=== PATIENT | female | born 1940 ===

== ENCOUNTER 2017-02-24 11:08 | Observation (INO) | payer MEDICARE ==
[2017-02-24 11:08] VITALS: BMI 26.2
--- NOTE | 2017-02-24 11:52 | ED PDOC ---
HPI: General Adult Time Seen by Provider: 02/24/17 11:32 Chief Complaint (Nursing): Dizziness/Lightheaded Chief Complaint (Provider): dizzy, vomiting History Per: Patient, Family (mother) Additional Complaint(s): 76-year-old female presents to emergency department for evaluation of headache, dizziness and vomiting that started at 5 AM this morning. Patient is unable to keep down any liquids or solids since vomiting started this morning. The patient took meclizine at home earlier but this did not help with dizziness or vomiting. She rates headache upon arrival as a 6 out of 10. She denies any facial numbness or numbness to upper or lower extremities. Patient has the sensation that the room is spinning and she does not feel steady on her feet when standing or walking. Patient also complains of overall body aches. Denies recent travel. Patient denies any chest pain, SOB or GE. NIHSS Stroke Scale - Date/Time Evaluation Performed Date Performed: 02/24/17 Time Performed: 11:45 When Was NIHSS Performed: Baseline - How Severe is the Stroke Level of Consciousness: 0=Alert LOC to Questions: 0=Both comments correct LOC to commands: 0=Obeys both correctly Best Gaze: 0=Normal Visual: 0=No visual loss Facial: 0=Normal Motor Arm - Left: 0=No drift Motor Arm - Right: 0=No drift Motor Leg - Left: 0=No drift Motor Leg - Right: 0=No drift Limb Ataxia: 0=Absent Sensory: 0=Normal Best Language: 0=No aphasia Dysarthia: 0=Normal articulation Extinction & Inattention (Neglect): 0=Normal, no object Score: 0 Past Medical History Reviewed: Historical Data, Nursing Documentation, Vital Signs Vital Signs: Last Vital Signs Temp 98 F 02/24/17 16:22 Pulse 79 02/24/17 16:54 Resp 18 02/24/17 16:54 BP 148/74 02/24/17 16:54 Pulse Ox 99 02/24/17 16:54 - Medical History PMH: Alzheimer's Disease, GERD - Surgical History Other surgeries: cataract surgery - Family History Family History: States: No Known Family Hx - Living Arrangements Living Arrangements: With Family - Social History Current smoker - smoking cessation education provided: No Alcohol: None Drugs: Denies - Home Medications Home Medications: Ambulatory Orders Medication Instructions Recorded Diclofenac Sodium [Voltaren] 1 appl TOP DAILY PRN 02/24/17 Diclofenac [Diclofenac] 25 mg PO BID PRN 02/24/17 Donepezil [Aricept] 5 mg PO HS 02/24/17 Ergocalciferol (Vitamin D2) 50,000 unit PO QWK 02/24/17 [Vitamin D2] Omeprazole [Omeprazole] 40 mg PO DAILY 02/24/17 Rivastigmine 4.6 mg/24 hr [Exelon 1 patch TD DAILY 02/24/17 4.6 mg/24 hr Patch] - Allergies Allergies/Adverse Reactions: Allergies Allergy/AdvReac Type Severity Reaction Status Date / Time Penicillins Allergy Unknown UNKNOWN Verified 02/24/17 11:34 Review of Systems ROS Statement: Except As Marked, All Systems Reviewed And Found Negative Constitutional: Positive for: Other (body aches). Negative for: Fever, Chills Eyes: Negative for: Vision Change Cardiovascular: Negative for: Chest Pain, Palpitations Respiratory: Negative for: Cough, Shortness of Breath Gastrointestinal: Positive for: Nausea, Vomiting. Negative for: Abdominal Pain , Diarrhea, Constipation Genitourinary Female: Negative for: Dysuria Neurological: Positive for: Headache, Dizziness. Negative for: Weakness, Numbness, Incoordination, Change in Speech, Confusion, Seizures, Altered Mental Status Physical Exam - Reviewed Nursing Documentation Reviewed: Yes Vital Signs Reviewed: Yes - Physical Exam Appears: Positive for: Well, Non-toxic, No Acute Distress Head Exam: Positive for: ATRAUMATIC, NORMAL INSPECTION Skin: Positive for: Normal Color. Negative for: Rash Eye Exam: Positive for: Normal appearance, EOMI, PERRL Neck: Positive for: Painless ROM Cardiovascular/Chest: Positive for: Regular Rate, Rhythm Respiratory: Positive for: Normal Breath Sounds. Negative for: Wheezing, Respiratory Distress Gastrointestinal/Abdominal: Positive for: Normal Exam, Soft. Negative for: Tenderness, Distended, Guarding, Rebound Back: Positive for: Normal Inspection. Negative for: L CVA Tenderness, R CVA Tenderness Extremity: Positive for: Normal ROM. Negative for: Pedal Edema Neurologic/Psych: Positive for: Alert, relief captain II-XII (intact), Oriented. Negative for: Motor/Sensory Deficits, Aphasia, Facial Droop - Laboratory Results Result Diagrams: 02/24/17 12:15 02/24/17 12:15 - ECG Interpretation Of ECG: NSR 80 bpm, no acute finding, reviewed by PA and ED attending O2 Sat by Pulse Oximetry: 99 Pulse Ox Interpretation: Normal - Other Rad CT head X-Ray: Read By Radiologist X-Ray Interpretation: see below Bedside chest X-Ray: Interpreted by Me, Viewed By Me X-Ray Interpretation: no infiltrate Medical Decision Making Medical Decision Makin76 year old with dizziness, nausea and headache, no neuro deficits noted on exam. Plan: CT head IVF IV zofran CBC CMP Trop UA CXR EKG Swallow screen Upon arrival patient was noted to have [address] on posterior neck. She states she placed 3 patches on instead of 1 yesterday because she thought if she was taking more of the medication it would worker quicker. Call was placed to poison control. They state to monitor for any GI side effects, no other inter CT: IMPRESSION: No evidence of acute intracranial hemorrhage territorial infarct mass effect or midline shift. Atrophy and moderate chronic microvascular white matter ischemic disease. 2:15 pm: patient states headache and nausea have improved but when she stands up she is still dizzy. PMD is Dr. Xi Barraza, call placed to Dr. Doss who admits Dr. Barraza's patients. Dr. Doss to admit patient to obs-tele. As per Dr. Doss, Dr. Rea contacted for neuro consult and Dr. Cadena contacted for cardiac consult. I spoke directly with Dr. Rea and Dr. Cadena who will both see patient while she is admitted. Disposition - Clinical Impression Clinical Impression: Dizziness, Vomiting - Patient ED Disposition Is Patient to be Admitted: Yes - Disposition Disposition Time: 17:23 Condition: FAIR - Pt Status Changed To: Hospital Disposition Of: Observation - POA Present On Arrival: None Results - Vital Signs Recent Vital Signs: Last Vital Signs Temp 98 F 02/24/17 16:22 Pulse 79 02/24/17 16:54 Resp 18 02/24/17 16:54 BP 148/74 02/24/17 16:54 Pulse Ox 99 02/24/17 16:54 - Labs Result Diagrams: 02/24/17 12:15 02/24/17 12:15 Labs: Laboratory Results - last 24 hr 02/24/17 02/24/17 02/24/17 12:15 12:15 13:11 WBC 10.1 RBC 4.44 Hgb 13.9 Hct 41.6 MCV 93.8 MCH 31.3 H MCHC 33.4 RDW 13.8 Plt Count 292 MPV 8.0 Neut % (Auto) 87.6 H Lymph % (Auto) 8.1 L Price % (Auto) 3.9 Eos % (Auto) 0.1 Baso % (Auto) 0.3 Neut # 8.9 H Lymph # 0.8 L Price # 0.4 Eos # 0.0 Baso # 0.0 Neutrophils % (Manual) 88 H Band Neutrophils % 2 Lymphocytes % (Manual) 5 L Monocytes % (Manual) 5 Platelet Estimate Normal Anisocytosis (manual) Slight Sodium 141 Potassium 4.1 Chloride 101 Carbon Dioxide 27 Anion Gap 17 BUN 20 H Creatinine 0.5 L Est GFR ( Amer) > 60 Est GFR (Non-Af Amer) > 60 Random Glucose 129 H Calcium 9.0 Total Bilirubin 0.6 AST 35 ALT 39 Alkaline Phosphatase 129 H Troponin I < 0.0120 Total Protein 8.5 H Albumin 4.7 Globulin 3.8 Albumin/Globulin Ratio 1.2 Urine Color Urine Clarity Urine pH Ur Specific [place] Urine Protein Urine Glucose (UA) Urine Ketones Urine Blood Urine Nitrate Urine Bilirubin Urine Urobilinogen Ur Leukocyte Esterase Urine RBC (Auto) Urine Microscopic WBC Ur Squamous Epith Cells Urine Bacteria Influenza Typ A,B (EIA) Negative for flu a/b 02/24/17 13:48 WBC RBC Hgb Hct MCV MCH MCHC RDW Plt Count MPV Neut % (Auto) Lymph % (Auto) Price % (Auto) Eos % (Auto) Baso % (Auto) Neut # Lymph # Price # Eos # Baso # Neutrophils % (Manual) Band Neutrophils % Lymphocytes % (Manual) Monocytes % (Manual) Platelet Estimate Anisocytosis (manual) Sodium Potassium Chloride Carbon Dioxide Anion Gap BUN Creatinine Est GFR ( Amer) Est GFR (Non-Af Amer) Random Glucose Calcium Total Bilirubin AST ALT Alkaline Phosphatase Troponin I Total Protein Albumin Globulin Albumin/Globulin Ratio Urine Color Yellow Urine Clarity Clear Urine pH 8.0 Ur Specific [place] 1.013 Urine Protein 100 Urine Glucose (UA) Neg Urine Ketones 20 Urine Blood Negative Urine Nitrate Negative Urine Bilirubin Negative Urine Urobilinogen 0.2-1.0 Ur Leukocyte Esterase Neg Urine RBC (Auto) 8 H Urine Microscopic WBC 2 Ur Squamous Epith Cells < 1 Urine Bacteria Rare Influenza Typ A,B (EIA)
[2017-02-24] MEDS ORDERED: Sodium Chloride 0.9% 1,000 ML IV STA (12:14)
[2017-02-24 12:57] LABS: BASO % 0.3 % (0.0-2.0); EOS % 0.1 % (0.0-4.0); HEMATOCRIT 41.6 % (34.0-47.0); LYMPH # 0.8 K/uL (1.0-4.3); LYMPH % 8.1 % (20.0-40.0); MEAN CELL VOLUME 93.8 fl (81.0-99.0); MEAN CORPUSCULAR HEMOGLOBIN 31.3 pg (27.0-31.0); MEAN CORPUSCULAR HGB CONC 33.4 g/dL (33.0-37.0); MONO # 0.4 K/uL (0.0-0.8); MONO % 3.9 % (0.0-10.0); NEUT # 8.9 K/uL (1.8-7.0); NEUT % 87.6 % (50.0-75.0); PLATELET COUNT 292 K/uL (130-400); RED CELL DISTRIBUTION WIDTH 13.8 % (11.5-14.5); WHITE BLOOD COUNT 10.1 K/uL (4.8-10.8)
--- NOTE | 2017-02-24 12:58 | CT ---
PROCEDURE: CT HEAD WITHOUT CONTRAST. HISTORY: dizzy, headache, nausea COMPARISON: None available. TECHNIQUE: Axial computed tomography images were obtained through the head/brain without intravenous contrast. Radiation dose: Total exam DLP = 1035.38 mGy-cm. This CT exam was performed using one or more of the following dose reduction techniques: Automated exposure control, adjustment of the mA and/or kV according to patient size, and/or use of iterative reconstruction technique. FINDINGS: HEMORRHAGE: No intracranial hemorrhage. BRAIN: No mass effect or edema. Mild atrophy is noted. Moderate white matter changes are also seen suggestive but nonspecific for chronic microvascular ischemic disease. VENTRICLES: Unremarkable. No hydrocephalus. CALVARIUM: Unremarkable. PARANASAL SINUSES: Unremarkable as visualized. No significant inflammatory changes. MASTOID AIR CELLS: Unremarkable as visualized. No inflammatory changes. OTHER FINDINGS: None. IMPRESSION: No evidence of acute intracranial hemorrhage territorial infarct mass effect or midline shift. Atrophy and moderate chronic microvascular white matter ischemic disease.
[2017-02-24 13:07] LABS: ALB/GLOB RATIO 1.2 (1.0-2.1); ALKALINE PHOSPHATASE 129 U/L (38-126); ALT/SGPT 39 U/L (9-52); AST/SGOT 35 U/L (14-36); BILIRUBIN,TOTAL 0.6 mg/dl (0.2-1.3); BLOOD UREA NITROGEN 20 mg/dl (7-17); CARBON DIOXIDE 27 mmol/L (22-30); CHLORIDE 101 mmol/L (98-107); GFR AFRICAN-AMERICAN > 60; GLUCOSE,RANDOM 129 mg/dL (65-105); POTASSIUM 4.1 MMOL/L (3.6-5.0); SODIUM 141 mmol/l (132-148); TOTAL PROTEIN 8.5 G/DL (6.3-8.2)
[2017-02-24 13:18] LABS: NEUTROPHIL 88 % (42-75); TOTAL CELLS COUNTED 100
[2017-02-24 13:57] LABS: RBC URINE 8 /hpf (0-3); URINE BACTERIA RARE (<OCC); URINE BILIRUBIN NEGATIVE (NEGATIVE); URINE BLOOD NEGATIVE (NEGATIVE); URINE COLOR YELLOW (YELLOW); URINE GLUCOSE (UA) NEG (Normal); URINE KETONE 20 mg/dL (NEGATIVE); URINE LEUKOCYTE ESTERASE NEG Leu/uL (Negative); URINE PROTEIN 100 mg/dL (NEGATIVE); URINE UROBILINOGEN 0.2-1.0 mg/dL (0.2-1.0); WBC URINE 2 /hpf (0-5)
--- NOTE | 2017-02-24 14:32 | RAD ---
HISTORY: clearance COMPARISON: No prior. FINDINGS: LUNGS: Prominent lung markings. No evidence of focal consolidation in the lungs. PLEURA: No significant pleural effusion identified, no pneumothorax apparent. CARDIOVASCULAR: Normal. OSSEOUS STRUCTURES: No significant abnormalities. VISUALIZED UPPER ABDOMEN: Normal. OTHER FINDINGS: None. IMPRESSION: Dominant markings at the mid and lower portion of the lungs. No evidence of consolidation or pleural effusion.
--- NOTE | 2017-02-24 20:50 | CP.PCM.CON ---
History of Present Illness - History of Present Illness History of Present Illness: I was asked to see patient by Patient is a 76 year old male with a history of HTN who presents with dizziness , nausea and near syncope. The patient states symptoms have begun about 3 days ago, and she has been unable to keep food down. The patient has been lightheaded and had a near syncopal event. The patient denies chest pain or palpitations. Review of Systems - Constitutional Constitutional: Weakness - EENT Eyes: absent: As Per HPI, Blind Spots, Blurred Vision, Change in Vision, Decreased Night Vision, Diplopia, Discharge, Dry Eye, Exophthalmos, Floaters, Irritation, Itchy Eyes, Loss of Peripheral Vision, Pain, Photophobia, Requires Corrective Lenses, Sees Flashes, Spots in Vision, Tunnel Vision, Other Visual Disturbances, Loss of Vision, Other Ears: absent: As Per HPI, Decreased Hearing, Ear Discharge, Ear Pain, Tinnitus, Abnormal Hearing, Disequilibrium, Dizziness, Other Nose/Mouth/Throat: absent: As Per HPI, Epistaxis, Nasal Congestion, Nasal Discharge, Nasal Obstruction, Nasal Trauma, Nose Pain, Post Nasal Drip, Sinus Pain, Sinus Pressure, Bleeding Gums, Change in Voice, Dental Pain, Dry Mouth, Dysphagia, Halitosis, Hoarsness, Lip Swelling, Mouth Lesions, Mouth Pain, Odynophagia, Sore Throat, Throat Swelling, Tongue Swelling, Facial Pain, Neck Pain, Neck Mass, Other - Cardiovascular Cardiovascular: absent: As Per HPI, Acrocyanosis, Chest Pain, Chest Pain at Rest , Chest Pain with Activity, Claudication, Diaphoresis, Dyspnea, Dyspnea on Exertion, Edema, Irregular Heart Rhythm, Pain Radiating to Arm/Neck/Jaw, Leg Edema, Leg Ulcers, Lightheadedness, Orthopnea, Palpitations, Paroxysmal Nocturnal Dyspnea, Pedal Edema, Radiating Pain, Rapid Heart Rate, Slow Heart Rate, Syncope, Other - Respiratory Respiratory: absent: As Per HPI, Cough, Dyspnea, Hemoptysis, Dyspnea on Exertion , Wheezing, Snoring, Stridor, Pain on Inspiration, Chest Congestion, Excessive Mucous Production, Change in Mucous Color, Pain with Coughing, Other - Gastrointestinal Gastrointestinal: Nausea, Vomiting - Genitourinary Genitourinary: absent: As Per HPI, Change in Urinary Stream, Difficulty Urinating, Dysuria, Flank Pain, Hematuria, Pyuria, Nocturia, Urinary Incontinence, Urinary Frequency, Urinary Hesitance, Urinary Urgency, Voiding Freq/Small Amts, Freq UTI, Hx Renal/Bladder Calculi, Hx /Renal Surgery, Bladder Distension, Other - Musculoskeletal Musculoskeletal: absent: As Per HPI, Abnormal Gait, Arthralgias, Atrophy, Back Pain, Deformity, Joint Swelling, Limited Range of Motion, Loss of Height, Muscle Cramps, Muscle Weakness, Myalgias, Neck Pain, Numbness, Radiating Pain into Limb, Stiffness, Tingling, Other - Integumentary Integumentary: absent: As Per HPI, Acne, Alopecia, Bleeding Lesions, Change in Hair, Change in Nails, Change in Pigmentation, Changing Lesions, Dry Skin, Erythema, Furuncle, Hirsutism, Lesions, New Lesions, Non-Healing Lesions, Photosensitivity, Pruritus, Rash, Skin Pain, Skin Ulcer, Sores, Striae, Swelling , Unusual Bruising, Wounds, Jaundice, Other - Neurological Neurological: Lack of Coordination, Syncope - Psychiatric Psychiatric: absent: As Per HPI, Abnormal Sleep Pattern, Anhedonia, Anxiety, Auditory Hallucinations, Behavioral Changes, Change in Appetite, Change in Libido, Confusion, Depression, Difficulty Concentrating, Hallucinations, Homicidal Ideation, Hopelessness, Irritability, Memory Loss, Mood Swings, Panic Attacks, Paranoia, Suicidal Ideation, Visual Hallucinations, Tactile Hallucinations, Other - Endocrine Endocrine: absent: As Per HPI, Change in Body Appearance, Change in Libido, Cold Intolorance, Deepening of Voice, Excessive Sweating, Fatigue, Flushing, Heat Intolorance, Increase in Ring/Shoe/Hat Size, Palpitations, Polydipsia, Polyphagia, Polyuria, Other - Hematologic/Lymphatic Hematologic: absent: As Per HPI, Easy Bleeding, Easy Bruising, Lymphadenopathy, Other Past Patient History - Past Social History Alcohol: None Drugs: Denies - CARDIAC Hx Pacemaker: Yes - NEUROLOGICAL Hx Alzheimer's Disease: Yes - HEMATOLOGICAL/ONCOLOGICAL Hx Blood Transfusions: No Hx Blood Transfusion Reaction: No - MUSCULOSKELETAL/RHEUMATOLOGICAL Hx Musculoskeletal Disorders: No - PSYCHIATRIC Hx Emotional Abuse: No Hx Physical Abuse: No Hx Substance Use: No - SURGICAL HISTORY Hx Surgeries: Yes Other/Comment: eye surgery (glaucoma) - ANESTHESIA Hx Anesthesia: Yes Hx Anesthesia Reactions: No Hx Malignant Hyperthermia: No Meds Allergies/Adverse Reactions: Allergies Allergy/AdvReac Type Severity Reaction Status Date / Time Penicillins Allergy Unknown UNKNOWN Verified 02/24/17 11:34 Physical Exam - Constitutional Appears: Non-toxic - Head Exam Head Exam: NORMAL INSPECTION - Eye Exam Eye Exam: Normal appearance - ENT Exam ENT Exam: Mucous Membranes Moist - Neck Exam Neck exam: Positive for: Normal Inspection - Respiratory Exam Respiratory Exam: NORMAL BREATHING PATTERN - Cardiovascular Exam Cardiovascular Exam: REGULAR RHYTHM - GI/Abdominal Exam GI & Abdominal Exam: Normal Bowel Sounds - Rectal Exam Rectal Exam: Deferred - Extremities Exam Extremities exam: Positive for: pedal edema - Back Exam Back exam: NORMAL INSPECTION - Neurological Exam Neurological exam: Alert, Oriented x3 - Psychiatric Exam Psychiatric exam: Normal Affect - Skin Skin Exam: Normal Color Results - Vital Signs Recent Vital Signs: Last Vital Signs Temp 97.8 F 02/24/17 19:15 Pulse 90 02/24/17 19:15 Resp 20 02/24/17 19:15 BP 178/74 H 02/24/17 19:15 Pulse Ox 93 L 02/24/17 19:15 - Labs Result Diagrams: 02/24/17 12:15 02/24/17 12:15 - EKG Data EKG Interpreted by: Myself Assessment & Plan (1) Near syncope Assessment and Plan: may be due to orthostasis from decreased po intake. recommend telemetry monitoring to assess for arrhythmia. Status: Acute (2) HTN (hypertension) Assessment and Plan: blood pressure will need to be monitored Status: Acute
[2017-02-24] MEDS ORDERED: Patient's Own Med (Diclofenac Sodium [Voltaren] 1 APPL) TOP PRN (22:54)
[2017-02-24] MEDS ORDERED: DICLOFENAC 25 MG PO PRN (22:54)
[2017-02-24] MEDS ORDERED: Ergocalciferol 50,000 Intl Units Cap PO SCH (23:00)
[2017-02-25 01:17] VITALS: RESP 18
[2017-02-25 05:31] VITALS: O2SAT 95
[2017-02-25] MEDS ORDERED: Pantoprazole 40 mg EC Tab PO SCH (09:00)
--- NOTE | 2017-02-25 10:37 | CP.PCM.HP ---
<Jane Zhou - Last Filed: 02/25/17 10:34> History of Present Illness - History of Present Illness History of Present Illness: Evaluated with attending 76yo F with PMHx Alzheimer's disease and HTN admitted for dizziness and near syncope. dizziness, room spinning feeling x1 day, a/w nausea/vomiting. All symptoms have resolved at time of evaluation. Compliant with medications, taking 3 antihypertensives and 2 meds for Alzheimer's. Denies chest pain, SOB, abd pain. PMHx: as above FHx: NC Surgical hx: cataract social hx: denies smoking, EtOH, drugs Allergies: PCN Present on Admission - Present on Admission Any Indicators Present on Admission: No Review of Systems - Constitutional Constitutional: absent: Chills, Fever - Cardiovascular Cardiovascular: absent: Chest Pain - Respiratory Respiratory: absent: Dyspnea - Gastrointestinal Gastrointestinal: Nausea, Vomiting. absent: Abdominal Pain, Diarrhea - Genitourinary Genitourinary: absent: Dysuria, Hematuria - Musculoskeletal Musculoskeletal: absent: Back Pain - Neurological Neurological: Dizziness Past Patient History - Past Medical History & Family History Past Medical History?: Yes - Past Social History Alcohol: None Drugs: Denies - CARDIAC Hx Pacemaker: Yes - NEUROLOGICAL Hx Alzheimer's Disease: Yes - HEMATOLOGICAL/ONCOLOGICAL Hx Blood Transfusions: No Hx Blood Transfusion Reaction: No - MUSCULOSKELETAL/RHEUMATOLOGICAL Hx Musculoskeletal Disorders: No - PSYCHIATRIC Hx Emotional Abuse: No Hx Physical Abuse: No Hx Substance Use: No - SURGICAL HISTORY Hx Surgeries: Yes Other/Comment: eye surgery (glaucoma) - ANESTHESIA Hx Anesthesia: Yes Hx Anesthesia Reactions: No Hx Malignant Hyperthermia: No Meds Allergies/Adverse Reactions: Allergies Allergy/AdvReac Type Severity Reaction Status Date / Time Penicillins Allergy Unknown UNKNOWN Verified 02/24/17 11:34 Physical Exam - Constitutional Appears: Non-toxic, No Acute Distress - Head Exam Head Exam: NORMAL INSPECTION - Eye Exam Eye Exam: EOMI, PERRL Pupil Exam: PERRL - ENT Exam ENT Exam: Mucous Membranes Moist - Neck Exam Neck exam: Positive for: Normal Inspection - Respiratory Exam Respiratory Exam: Clear to Auscultation Bilateral - Cardiovascular Exam Cardiovascular Exam: REGULAR RHYTHM - GI/Abdominal Exam GI & Abdominal Exam: Normal Bowel Sounds, Soft - Extremities Exam Extremities exam: Positive for: normal inspection. Negative for: pedal edema - Neurological Exam Neurological exam: Alert, CN II-XII Intact, Oriented x3 - Skin Skin Exam: Dry, Warm Results - Vital Signs Recent Vital Signs: Last Vital Signs Temp 98.4 F 02/25/17 07:49 Pulse 69 02/25/17 07:49 Resp 18 02/25/17 07:49 BP 107/59 L 02/25/17 07:49 Pulse Ox 95 02/25/17 07:49 - Labs Result Diagrams: 02/24/17 12:15 02/24/17 12:15 Assessment & Plan - Assessment and Plan (Free Text) Assessment: 76yo F with PMHx Alzheimer's disease and HTN admitted for dizziness and near syncope. near syncope -may be 2/2 to medication interaction, limited PO intake -CT head no acute pathology -ECHO -cardio on board, appreciate input -neuro c/s, appreciate input -hold antihypertensives, aricept dizziness, nausea -zofran -meclizine -PO as tolerated HTN -hold home meds d/t symptoms Alzheimer's disease -hold aricept -c/w Exelon DVT ppx -lovenox Dispo: d/c if ECHO normal. Continue to hold antihypertensives and aricept at time of d/c. FU with PCP as outpt Decision To Admit - Pt Status Changed To: Hospital Disposition Of: Observation - . Bed Request Type: Telemetry Admitting Physician: Matthew Doss <Matthew Doss - Last Filed: 02/25/17 15:57> Results - Vital Signs Recent Vital Signs: Last Vital Signs Temp 98.6 F 02/25/17 11:57 Pulse 66 02/25/17 11:57 Resp 18 02/25/17 11:57 BP 119/66 02/25/17 11:57 Pulse Ox 95 02/25/17 11:57 - Labs Result Diagrams: 02/24/17 12:15 02/24/17 12:15 Labs: Laboratory Results - last 24 hr 02/25/17 08:15 Vitamin B12 554 TSH 3rd Generation 1.29 Assessment & Plan - Assessment and Plan (Free Text) Assessment: Patient seen and examined with residents in rounds. Case, condition, investigative work up and plan discussed in detail. Agree with residents progress note. Plan: As ordered. (Matthew Doss MD)
[2017-02-25 10:41] LABS: THYROID STIMULATING HORMONE 1.29 mIU/ML (0.46-4.68)
[2017-02-25 11:57] VITALS: BP 119/66; PULSE 66; TEMP 98.6
--- NOTE | 2017-02-25 12:31 | CARD ---
APPROVED REPORT EKG Measurement Heart [id number] <Conclusion> Normal sinus rhythm Prolonged QT Abnormal ECG
--- NOTE | 2017-02-25 12:55 | CP.PCM.CON ---
History of Present Illness - History of Present Illness History of Present Illness: Mrs. Fowler is a 76-year-old woman with a past medical history of Alzheimher's disease and hypertension, who presented yesterday with complaints of dizziness. Labs showed that she was dehydration and on more than one occasion during hospitalization, she has been slightly hypotensive. After about 4 PM yesterday , the patient was asymptomatic and said that she no longer had any dizziness. Today, the patient had no complaints and was pleasant. Review of Systems - Review of Systems All systems: reviewed and no additional remarkable complaints except Past Patient History - Past Medical History & Family History Past Medical History?: Yes - Past Social History Alcohol: None Drugs: Denies - CARDIAC Hx Pacemaker: Yes - NEUROLOGICAL Hx Alzheimer's Disease: Yes - HEMATOLOGICAL/ONCOLOGICAL Hx Blood Transfusions: No Hx Blood Transfusion Reaction: No - MUSCULOSKELETAL/RHEUMATOLOGICAL Hx Musculoskeletal Disorders: No - PSYCHIATRIC Hx Emotional Abuse: No Hx Physical Abuse: No Hx Substance Use: No - SURGICAL HISTORY Hx Surgeries: Yes Other/Comment: eye surgery (glaucoma) - ANESTHESIA Hx Anesthesia: Yes Hx Anesthesia Reactions: No Hx Malignant Hyperthermia: No Meds Home Medications: Home Medication List Medication Instructions Recorded Confirmed Type Meclizine [Antivert] 12.5 mg PO BID #14 tab 02/25/17 Rx Pantoprazole [Protonix EC Tab] 40 mg PO DAILY #30 ect 02/25/17 Rx Allergies/Adverse Reactions: Allergies Allergy/AdvReac Type Severity Reaction Status Date / Time Penicillins Allergy Unknown UNKNOWN Verified 02/24/17 11:34 - Medications Medications: Current Medications Enoxaparin Sodium (Lovenox) 40 mg SC DAILY [place] PRN Reason: Protocol Ergocalciferol (Drisdol 50,000 Intl Units Cap) 1 cap PO QWK [facility] Home Med (Diclofenac Sodium [Voltaren]) 1 appl TOP DAILY PRN PRN Reason: Pain, moderate (4-7) Home Med (Diclofenac [Diclofenac]) 25 mg PO BID PRN PRN Reason: Pain, moderate (4-7) Meclizine HCl (Antivert) 12.5 mg PO BID [facility] Pantoprazole Sodium (Protonix Ec Tab) 40 mg PO DAILY [facility] Rivastigmine (Exelon 4.6 Mg/24 Hr Patch) 1 patch TD DAILY [facility] Physical Exam - Constitutional Appears: Well - Head Exam Head Exam: ATRAUMATIC, NORMAL INSPECTION, NORMOCEPHALIC - Eye Exam Eye Exam: EOMI, Normal appearance, PERRL - ENT Exam ENT Exam: Mucous Membranes Moist, Normal Exam - Neck Exam Neck exam: Positive for: Normal Inspection - Respiratory Exam Respiratory Exam: Clear to Auscultation Bilateral, NORMAL BREATHING PATTERN - Cardiovascular Exam Cardiovascular Exam: REGULAR RHYTHM, +S1, +S2 - GI/Abdominal Exam GI & Abdominal Exam: Normal Bowel Sounds, Soft. absent: Tenderness - Neurological Exam Neurological exam: Alert, CN II-XII Intact, Normal Gait, Oriented x3, Reflexes Normal - Expanded Neurological Exam Expanded Patient oriented to: person, place Cranial nerves: EOM's Intact: Normal, Gag Reflex: Normal Ataxia: No Cerebellar Function: Finger to Nose: Normal, Heel to Jauregui: Normal, Romberg: Normal Upper motor neuron: Babinski Sign: Normal Sensory exam: Lower Extremity 2 Point Discrimination: Normal, Lower Extremity Light Touch: Normal, Lower Extremity Pin Prick: Normal, Lower Extremity Temperature: Normal, Upper Extremity 2 Point Discrimination: Normal, Upper Extremity Light Touch: Normal, Upper Extremity Pin Prick: Normal, Upper Extremity Temperature: Normal Neuro motor strength exam: Left Upper Extremity: 5, Right Upper Extremity: 5, Left Lower Extremity: 5, Right Lower Extremity: 5 DTR: Achilles Tendon Left: 2+, Achilles Tendon Right: 2+, Bicep Left: 2+, Bicep Right: 2+, Brachioradialis Left: 2+, Brachioradialis Right: 2+, Patellar Left: 2 +, Patellar Right: 2+, Tricep Left: 2+, Tricep Right: 2+ - Psychiatric Exam Psychiatric exam: Normal Affect, Normal Mood - Skin Skin Exam: Dry, Intact, Normal Color, Warm Results - Vital Signs Recent Vital Signs: Last Vital Signs Temp 98.6 F 02/25/17 11:57 Pulse 66 02/25/17 11:57 Resp 18 02/25/17 11:57 BP 119/66 02/25/17 11:57 Pulse Ox 95 02/25/17 11:57 - Labs Result Diagrams: 02/24/17 12:15 02/24/17 12:15 Labs: Laboratory Results - last 24 hr 02/25/17 08:15 Vitamin B12 554 TSH 3rd Generation 1.29 - Imaging and Cardiology CT scan - head Status: Image reviewed by me, Report reviewed by me (No acute findings. ) Assessment & Plan (1) Dizziness Assessment and Plan: The dizziness could have been due to dehydration, hypotension or a medication effect. I recommend hydration with NS at 100 mL/hr, adjust anti-hypertensive medications, PT/OT, DVT Px, and start aspirin 81 mg daily for cerebrovascular protection. Symptoms were not consistent with vertigo. Will stop meclizine. Thank you very much for this consultation. Status: Acute Priority: Medium
[2017-02-25] MEDS ORDERED: Sodium Chloride 0.9% 1,000 ML IV SCH (13:15)
--- NOTE | 2017-02-25 13:42 | CARD ---
APPROVED REPORT EXAM: Two-dimensional and M-mode echocardiogram with Doppler and color Doppler. Other Information Quality : GoodRhythm : NSR INDICATION Syncope 2D DIMENSIONS IVSd0.98 (0.7-1.1cm)LVDd4.05 (3.9-5.9cm) LVOT Diameter2.04 (1.8-2.4cm)PWd0.74 (0.7-1.1cm) IVSs1.14 (0.8-1.2cm)LVDs3.52 (2.5-4.0cm) FS (%) 13.0 %PWs0.98 (0.8-1.2cm) M-Mode DIMENSIONS Left Atrium (MM)3.59 (2.5-4.0cm)IVSd1.06 (0.7-1.1cm) Aortic Root2.79 (2.2-3.7cm)LVDd3.76 (4.0-5.6cm) Aortic Cusp Exc.1.76 (1.5-2.0cm)PWd0.91 (0.7-1.1cm) IVSs1.47 cmFS (%) 43 % LVDs2.15 (2.0-3.8cm)PWs1.47 cm Mitral Valve MV E Hqlgjodv33.8cm/sMV DECEL [id number] A Gpsfkifj03.6cm/s MV MPQ56klR/A ratio0.9MVA (PHT)2.67cm2 TDI Lateral E' Peak V7.82cm/sMedial E' Peak V5.95cm/sE/Lateral E'6.9 E/Medial E'9.0 Pulmonary Valve PV Peak Luooxjve624.7cm/s LEFT VENTRICLE The left ventricle is normal size. There is normal left ventricular wall thickness. The left ventricular function is normal. The left ventricular ejection fraction is - 70%. There is normal LV segmental wall motion. Transmitral Doppler flow pattern is Grade I-abnormal relaxation pattern. No left ventricle thrombus noted on this study. There is no ventricular septal defect visualized. There is no left ventricular aneurysm. There is no mass noted in the left ventricle. RIGHT VENTRICLE The right ventricle is normal size. There is normal right ventricular wall thickness. The right ventricular systolic function is normal. ATRIA The left atrium size is normal. There is no thrombus suspected in the left atrium. The right atrium size is normal. The interatrial septum is intact with no evidence for an atrial septal defect. AORTIC VALVE The aortic valve is normal in structure and function. No aortic regurgitation is present. There is no aortic valvular stenosis. MITRAL VALVE The mitral valve is normal in structure and function. There is no evidence of mitral valve prolapse. There is no mitral valve stenosis. There is no mitral valve regurgitation noted. TRICUSPID VALVE The tricuspid valve is normal in structure and function. There is no tricuspid valve regurgitation noted. There is no tricuspid valve prolapse or vegetation. There is no tricuspid valve stenosis. PULMONIC VALVE The pulmonary valve is normal in structure and function. There is no pulmonic valvular regurgitation. GREAT VESSELS The aortic root is normal in size. The IVC is normal in size and collapses >50% with inspiration. PERICARDIAL EFFUSION There is a small anterior echo free space. There is no pleural effusion. <Conclusion> The left ventricle is normal in size and wall thickness. The left ventricular function is normal. The left ventricular ejection fraction is - 70%. The left atrium, right ventricle and right atrium are normal in size. The mitral, aortic and tricuspid valves are normal.
--- NOTE | 2017-02-25 15:11 | CP.PCM.DIS ---
<Jane Zhou - Last Filed: 02/25/17 15:12> Provider - Provider Date of Admission: 02/24/17 15:29 Attending physician: Matthew Doss MD Time Spent in preparation of Discharge (in minutes): 20 Diagnosis - Discharge Diagnosis (1) Dizziness Status: Acute Priority: Medium (2) HTN (hypertension) Status: Acute (3) Near syncope Status: Acute (4) Vomiting Status: Acute Hospital Course - Lab Results Lab Results: Most Recent Lab Values WBC 10.1 K/uL (4.8-10.8) 02/24/17 12:15 RBC 4.44 Mil/uL (3.80-5.20) 02/24/17 12:15 Hgb 13.9 g/dL (12.0-16.0) 02/24/17 12:15 Hct 41.6 % (34.0-47.0) 02/24/17 12:15 MCV 93.8 fl (81.0-99.0) 02/24/17 12:15 MCH 31.3 pg (27.0-31.0) H 02/24/17 12:15 MCHC 33.4 g/dL (33.0-37.0) 02/24/17 12:15 RDW 13.8 % (11.5-14.5) 02/24/17 12:15 Plt Count 292 K/uL (130-400) 02/24/17 12:15 MPV 8.0 fl (7.2-11.7) 02/24/17 12:15 Neut % (Auto) 87.6 % (50.0-75.0) H 02/24/17 12:15 Lymph % (Auto) 8.1 % (20.0-40.0) L 02/24/17 12:15 [place] % (Auto) 3.9 % (0.0-10.0) 02/24/17 12:15 Eos % (Auto) 0.1 % (0.0-4.0) 02/24/17 12:15 Baso % (Auto) 0.3 % (0.0-2.0) 02/24/17 12:15 Neut # 8.9 K/uL (1.8-7.0) H 02/24/17 12:15 Lymph # 0.8 K/uL (1.0-4.3) L 02/24/17 12:15 [place] # 0.4 K/uL (0.0-0.8) 02/24/17 12:15 Eos # 0.0 K/uL (0.0-0.7) 02/24/17 12:15 Baso # 0.0 K/uL (0.0-0.2) 02/24/17 12:15 Neutrophils % (Manual) 88 % (42-75) H 02/24/17 12:15 Band Neutrophils % 2 % (0-2) 02/24/17 12:15 Lymphocytes % (Manual) 5 % (20-50) L 02/24/17 12:15 Monocytes % (Manual) 5 % (0-10) 02/24/17 12:15 Platelet Estimate Normal (NORMAL) 02/24/17 12:15 Anisocytosis (manual) Slight 02/24/17 12:15 Sodium 141 mmol/l (132-148) 02/24/17 12:15 Potassium 4.1 MMOL/L (3.6-5.0) 02/24/17 12:15 Chloride 101 mmol/L (98-107) 02/24/17 12:15 Carbon Dioxide 27 mmol/L (22-30) 02/24/17 12:15 Anion Gap 17 (10-20) 02/24/17 12:15 BUN 20 mg/dl (7-17) H 02/24/17 12:15 Creatinine 0.5 mg/dL (0.7-1.2) L 02/24/17 12:15 Est GFR ( Amer) > 60 02/24/17 12:15 Est GFR (Non-Af Amer) > 60 02/24/17 12:15 Random Glucose 129 mg/dL (65-105) H 02/24/17 12:15 Calcium 9.0 mg/dL (8.4-10.2) 02/24/17 12:15 Total Bilirubin 0.6 mg/dl (0.2-1.3) 02/24/17 12:15 AST 35 U/L (14-36) 02/24/17 12:15 ALT 39 U/L (9-52) 02/24/17 12:15 Alkaline Phosphatase 129 U/L (38-126) H 02/24/17 12:15 Troponin I < 0.0120 ng/mL (0.00-0.120) 02/24/17 12:15 Total Protein 8.5 G/DL (6.3-8.2) H 02/24/17 12:15 Albumin 4.7 g/dL (3.5-5.0) 02/24/17 12:15 Globulin 3.8 gm/dL (2.2-3.9) 02/24/17 12:15 Albumin/Globulin Ratio 1.2 (1.0-2.1) 02/24/17 12:15 Vitamin B12 554 pg/mL (239-931) 02/25/17 08:15 TSH 3rd Generation 1.29 mIU/ML (0.46-4.68) 02/25/17 08:15 Urine Color Yellow (YELLOW) 02/24/17 13:48 Urine Clarity Clear (Clear) 02/24/17 13:48 Urine pH 8.0 (5.0-8.0) 02/24/17 13:48 Ur Specific [place] 1.013 (1.003-1.030) 02/24/17 13:48 Urine Protein 100 mg/dL (NEGATIVE) 02/24/17 13:48 Urine Glucose (UA) Neg mg/dL (Normal) 02/24/17 13:48 Urine Ketones 20 mg/dL (NEGATIVE) 02/24/17 13:48 Urine Blood Negative (NEGATIVE) 02/24/17 13:48 Urine Nitrate Negative (NEGATIVE) 02/24/17 13:48 Urine Bilirubin Negative (NEGATIVE) 02/24/17 13:48 Urine Urobilinogen 0.2-1.0 mg/dL (0.2-1.0) 02/24/17 13:48 Ur Leukocyte Esterase Neg Anjum/uL (Negative) 02/24/17 13:48 Urine RBC (Auto) 8 /hpf (0-3) H 02/24/17 13:48 Urine Microscopic WBC 2 /hpf (0-5) 02/24/17 13:48 Ur Squamous Epith Cells < 1 /hpf (0-5) 02/24/17 13:48 Urine Bacteria Rare (<OCC) 02/24/17 13:48 Influenza Typ A,B (EIA) Negative for flu a/b (NEGATIVE) 02/24/17 13:11 - Hospital Course Hospital Course: 76yo F with PMHx Alzheimer's disease and HTN admitted for dizziness and near syncope. CT head showed no acute pathology. ECHO showed no abnormalities. cardio Dr. Cadena c/s and cleared pt for d/c based on ECHO. Neuro Dr. Rea c/ s and cleared pt for d/c based on CT head and resolution of symptoms. Pt to stop taking any antihypertensives till followed up by PCP and to take only 1 med for Alzheimer's disease. Discharge Exam - Head Exam Head Exam: ATRAUMATIC, NORMAL INSPECTION, NORMOCEPHALIC Discharge Plan - Discharge Medications Prescriptions: Aspirin [Aspirin Chewable] 81 mg PO DAILY #30 Pantoprazole [Protonix EC Tab] 40 mg PO DAILY #30 ect - Follow Up Plan Condition: FAIR Disposition: HOME/ ROUTINE Instructions: Vertigo (DC) Additional Instructions: patient cleared for discharge to home today by , and Rx for med sent to [facility] pharmacy (erx) pt. will f/u with pmd in 1 week encouraged po fluids d/c meclizine, start asa Referrals: Mayte Rudolph MD [Medical Doctor] - <Matthew Doss - Last Filed: 02/25/17 15:59> Provider - Provider Date of Admission: 02/24/17 15:29 Attending physician: Matthew Doss MD Hospital Course - Lab Results Lab Results: Most Recent Lab Values WBC 10.1 K/uL (4.8-10.8) 02/24/17 12:15 RBC 4.44 Mil/uL (3.80-5.20) 02/24/17 12:15 Hgb 13.9 g/dL (12.0-16.0) 02/24/17 12:15 Hct 41.6 % (34.0-47.0) 02/24/17 12:15 MCV 93.8 fl (81.0-99.0) 02/24/17 12:15 MCH 31.3 pg (27.0-31.0) H 02/24/17 12:15 MCHC 33.4 g/dL (33.0-37.0) 02/24/17 12:15 RDW 13.8 % (11.5-14.5) 02/24/17 12:15 Plt Count 292 K/uL (130-400) 02/24/17 12:15 MPV 8.0 fl (7.2-11.7) 02/24/17 12:15 Neut % (Auto) 87.6 % (50.0-75.0) H 02/24/17 12:15 Lymph % (Auto) 8.1 % (20.0-40.0) L 02/24/17 12:15 [place] % (Auto) 3.9 % (0.0-10.0) 02/24/17 12:15 Eos % (Auto) 0.1 % (0.0-4.0) 02/24/17 12:15 Baso % (Auto) 0.3 % (0.0-2.0) 02/24/17 12:15 Neut # 8.9 K/uL (1.8-7.0) H 02/24/17 12:15 Lymph # 0.8 K/uL (1.0-4.3) L 02/24/17 12:15 [place] # 0.4 K/uL (0.0-0.8) 02/24/17 12:15 Eos # 0.0 K/uL (0.0-0.7) 02/24/17 12:15 Baso # 0.0 K/uL (0.0-0.2) 02/24/17 12:15 Neutrophils % (Manual) 88 % (42-75) H 02/24/17 12:15 Band Neutrophils % 2 % (0-2) 02/24/17 12:15 Lymphocytes % (Manual) 5 % (20-50) L 02/24/17 12:15 Monocytes % (Manual) 5 % (0-10) 02/24/17 12:15 Platelet Estimate Normal (NORMAL) 02/24/17 12:15 Anisocytosis (manual) Slight 02/24/17 12:15 Sodium 141 mmol/l (132-148) 02/24/17 12:15 Potassium 4.1 MMOL/L (3.6-5.0) 02/24/17 12:15 Chloride 101 mmol/L (98-107) 02/24/17 12:15 Carbon Dioxide 27 mmol/L (22-30) 02/24/17 12:15 Anion Gap 17 (10-20) 02/24/17 12:15 BUN 20 mg/dl (7-17) H 02/24/17 12:15 Creatinine 0.5 mg/dL (0.7-1.2) L 02/24/17 12:15 Est GFR ( Amer) > 60 02/24/17 12:15 Est GFR (Non-Af Amer) > 60 02/24/17 12:15 Random Glucose 129 mg/dL (65-105) H 02/24/17 12:15 Calcium 9.0 mg/dL (8.4-10.2) 02/24/17 12:15 Total Bilirubin 0.6 mg/dl (0.2-1.3) 02/24/17 12:15 AST 35 U/L (14-36) 02/24/17 12:15 ALT 39 U/L (9-52) 02/24/17 12:15 Alkaline Phosphatase 129 U/L (38-126) H 02/24/17 12:15 Troponin I < 0.0120 ng/mL (0.00-0.120) 02/24/17 12:15 Total Protein 8.5 G/DL (6.3-8.2) H 02/24/17 12:15 Albumin 4.7 g/dL (3.5-5.0) 02/24/17 12:15 Globulin 3.8 gm/dL (2.2-3.9) 02/24/17 12:15 Albumin/Globulin Ratio 1.2 (1.0-2.1) 02/24/17 12:15 Vitamin B12 554 pg/mL (239-931) 02/25/17 08:15 TSH 3rd Generation 1.29 mIU/ML (0.46-4.68) 02/25/17 08:15 Urine Color Yellow (YELLOW) 02/24/17 13:48 Urine Clarity Clear (Clear) 02/24/17 13:48 Urine pH 8.0 (5.0-8.0) 02/24/17 13:48 Ur Specific [place] 1.013 (1.003-1.030) 02/24/17 13:48 Urine Protein 100 mg/dL (NEGATIVE) 02/24/17 13:48 Urine Glucose (UA) Neg mg/dL (Normal) 02/24/17 13:48 Urine Ketones 20 mg/dL (NEGATIVE) 02/24/17 13:48 Urine Blood Negative (NEGATIVE) 02/24/17 13:48 Urine Nitrate Negative (NEGATIVE) 02/24/17 13:48 Urine Bilirubin Negative (NEGATIVE) 02/24/17 13:48 Urine Urobilinogen 0.2-1.0 mg/dL (0.2-1.0) 02/24/17 13:48 Ur Leukocyte Esterase Neg [place]jum/uL (Negative) 02/24/17 13:48 Urine RBC (Auto) 8 /hpf (0-3) H 02/24/17 13:48 Urine Microscopic WBC 2 /hpf (0-5) 02/24/17 13:48 Ur Squamous Epith Cells < 1 /hpf (0-5) 02/24/17 13:48 Urine Bacteria Rare (<OCC) 02/24/17 13:48 Influenza Typ A,B (EIA) Negative for flu a/b (NEGATIVE) 02/24/17 13:11
[2017-02-26] MEDS ORDERED: Enoxaparin 40 mg Syringe SC SCH (09:00)
== END 2017-02-25 16:10 | disposition home or self-care (01) ==
LOC: H.ER 11:08 → H.ERHOLD 15:29 → H.TEL 18:41
PROVIDERS: ADMIT Internal Medicine; ATTEND Internal Medicine
DX: R42 Dizziness and giddiness (principal); I10 Essential (primary) hypertension; G30.9 Alzheimer's disease, unspecified; R55 Syncope and collapse; Z95.0 Presence of cardiac pacemaker; Z88.0 Allergy status to penicillin; K21.9 Gastro-esophageal reflux disease without esophagitis; E86.0 Dehydration; R11.10 Vomiting, unspecified
CPT/HCPCS: 36415; 70450; 71010; 80053; 81003; 82607; 84443; 84484; 85025; 87804; 93005; 93306; 96360; 99285; G0378; J2405; J7040